=== PATIENT | female | born 1990 | race Caucasian/White ===

== ENCOUNTER 2017-03-11 03:27 | Emergency (ER) | payer SELFPAY ==
[~2017-03-11] VITALS: Ht 157.5 cm; Wt 74.2 kg
[2017-03-11] MEDS ORDERED: SERT50TA PO (03:35)
[2017-03-11 06:38] VITALS: BP 104/64
[2017-03-11] MEDS ORDERED: IBUPROFEN 200 MG TABLET ONE (07:14)
[2017-03-11] MEDS ORDERED: IBUPROFEN 200 MG TABLET PO ONE (07:30)
== END 2017-03-11 07:20 | disposition home or self-care (01) ==
LOC: ED 07:14
DX: F10.120 Alcohol abuse with intoxication, uncomplicated (principal)
CPT/HCPCS: 99283